=== PATIENT | male | born 1930 | race Caucasian/White ===

== ENCOUNTER 2018-02-09 11:46 | Inpatient (IN) | payer MEDICARE ==
--- NOTE | 2018-02-09 12:31 | ED ---
General Adult HPI - General Chief complaint: Weakness Stated complaint: Altered Mental Status Time Seen by Provider: 02/09/18 12:00 Source: patient, RN notes reviewed Mode of arrival: ambulatory Limitations: no limitations - History of Present Illness Initial comments: This is an 87-year-old male who presents emergency Department complaining of not feeling right. According to family he had 2 episodes during the week where he was just staring off for between 5 and 10 minutes and not responding he was not however unconscious. Patient now states he just doesn't feel right. He can 't really put into words but doesn't feel right. Patient denies any pain he denies headache he denies chest pain denies abdominal pain. Patient denies any recent fever chills or cough. Patient denies palpitations. Patient denies any nausea vomiting diarrhea. Patient denies any dysuria hematuria urinary frequency. Family states he seems to be more forgetful over the last few days. They note that he has had bypass surgery in the past as well as a stroke. Patient denies any injury or trauma. - Related Data Home Medications Medication Instructions Recorded Confirmed Albuterol Nebulized [Ventolin 2.5 mg INHALATION RT-BID 02/09/18 02/09/18 Nebulized] Aspirin/Dipyridamole [Aggrenox 1 tab PO BID 02/09/18 02/09/18 25MG -200MG] Citalopram Hydrobromide 20 mg PO DAILY 02/09/18 02/09/18 [Citalopram HBr] Docusate [Colace] 100 mg PO BID 02/09/18 02/09/18 Ferrous Sulfate [Feosol] 325 mg PO TID-W/MEALS 02/09/18 02/09/18 Fluticasone/Vilanterol [Breo 1 puff INHALATION RT-DAILY 02/09/18 02/09/18 Ellipta 200-25 Mcg INH] Focus Macula Pro 1 tab PO DAILY 02/09/18 02/09/18 Isosorbide Mononitrate ER [Imdur] 30 mg PO DAILY 02/09/18 02/09/18 Losartan Potassium [Cozaar] 100 mg PO DAILY 02/09/18 02/09/18 Multivitamins, Thera [Multivitamin 1 tab PO DAILY 02/09/18 02/09/18 (formulary)] Omeprazole 20 mg PO DAILY 02/09/18 02/09/18 Oxybutynin Chloride 5 mg PO DAILY 02/09/18 02/09/18 Simvastatin [Zocor] 40 mg PO HS 02/09/18 02/09/18 Tiotropium [place] [Spiriva] 1 cap INHALATION RT-DAILY 02/09/18 02/09/18 amLODIPine [Norvasc] 2.5 mg PO DAILY 02/09/18 02/09/18 Allergies Allergy/AdvReac Type Severity Reaction Status Date / Time No Known Allergies Allergy Verified 02/09/18 13:02 Review of Systems ROS Statement: Those systems with pertinent positive or pertinent negative responses have been documented in the HPI. ROS Other: All systems not noted in ROS Statement are negative. Past Medical History Past Medical History: COPD, Hyperlipidemia, Hypertension History of Any Multi-Drug Resistant Organisms: None Reported Past Surgical History: Coronary Bypass/CABG, Hernia Repair, Orthopedic Surgery Additional Past Surgical History / Comment(s): triple bypass, bilateral knee and ankle replacements Past Psychological History: No Psychological Hx Reported Smoking Status: Former smoker Past Alcohol Use History: Daily Past Drug Use History: None Reported General Exam - General Exam Comments Initial Comments: GENERAL: Patient is well-developed and well-nourished. Patient is nontoxic and well- hydrated and is in no acute distress. ENT: Neck is soft and supple. No significant lymphadenopathy is noted. Oropharynx is clear. Moist mucous membranes. Neck has full range of motion without eliciting any pain. EYES: The sclera were anicteric and conjunctiva were pink and moist. Extraocular movements were intact and pupils were equal round and reactive to light. Eyelids were unremarkable. PULMONARY: Unlabored respirations. Good breath sounds bilaterally. No audible rales rhonchi or wheezing was noted. CARDIOVASCULAR: There is a regular rate and rhythm without any murmurs gallops or rubs. ABDOMEN: Soft and nontender with normal bowel sounds. No palpable organomegaly was noted. There is no palpable pulsatile mass. SKIN: Skin is clear with no lesions or rashes and otherwise unremarkable. NEUROLOGIC: Patient is alert and oriented x3. Cranial nerves II through XII are grossly intact. Motor and sensory are also intact. Normal speech, volume and content. Symmetrical smile. MUSCULOSKELETAL: Normal extremities with adequate strength and full range of motion. No lower extremity swelling or edema. No calf tenderness. LYMPHATICS: No significant lymphadenopathy is noted PSYCHIATRIC: Normal psychiatric evaluation. Limitations: no limitations Course Vital Signs 02/09/18 11:54 Temperature 98.8 F Pulse Rate 61 Respiratory 18 Rate Blood Pressure 123/51 O2 Sat by Pulse 97 Oximetry Medical Decision Making - Medical Decision Making EKG shows sinus bradycardia 50 bpm RI interval is 238 QRS is 92 QT interval is 422 QTC is 414. Patient's EKG shows no ST segment elevation or depression or T wave abnormalities are noted - Lab Data Result diagrams: 02/09/18 12:30 02/09/18 12:30 Lab Results 02/09/18 02/09/18 02/09/18 Range/Units 12:30 12:30 12:30 WBC 6.3 (3.8-10.6) k/uL RBC 2.66 L (4.30-5.90) m/uL Hgb 8.1 L (13.0-17.5) gm/dL Hct 24.7 L (39.0-53.0) % MCV 92.7 (80.0-100.0) fL MCH 30.6 (25.0-35.0) pg MCHC 33.0 (31.0-37.0) g/dL RDW 13.9 (11.5-15.5) % Plt Count 254 (150-450) k/uL Neutrophils % 72 % Lymphocytes % 17 % Monocytes % 7 % Eosinophils % 3 % Basophils % 0 % Neutrophils # 4.5 (1.3-7.7) k/uL Lymphocytes # 1.0 (1.0-4.8) k/uL Monocytes # 0.4 (0-1.0) k/uL Eosinophils # 0.2 (0-0.7) k/uL Basophils # 0.0 (0-0.2) k/uL PT (9.0-12.0) sec INR (<1.2) APTT (22.0-30.0) sec Sodium 138 (137-145) mmol/L Potassium 5.6 H (3.5-5.1) mmol/L Chloride 107 (98-107) mmol/L Carbon Dioxide 26 (22-30) mmol/L Anion Gap 5 mmol/L BUN 33 H (9-20) mg/dL Creatinine 1.45 H (0.66-1.25) mg/dL Est GFR (CKD-EPI)AfAm 49 (>60 ml/min/1.73 sqM) Est GFR (CKD-EPI)NonAf 42 (>60 ml/min/1.73 sqM) Glucose 97 (74-99) mg/dL Calcium 9.6 (8.4-10.2) mg/dL Total Bilirubin 0.2 (0.2-1.3) mg/dL AST 23 (17-59) U/L ALT 25 (21-72) U/L Alkaline Phosphatase 80 (38-126) U/L Total Creatine Kinase 51 L (55-170) U/L CK-MB (CK-2) 1.7 (0.0-2.4) ng/mL CK-MB (CK-2) Rel Index 3.3 Troponin I 0.032 (0.000-0.034) ng/mL Total Protein 6.1 L (6.3-8.2) g/dL Albumin 3.6 (3.5-5.0) g/dL 02/09/18 Range/Units 12:30 WBC (3.8-10.6) k/uL RBC (4.30-5.90) m/uL Hgb (13.0-17.5) gm/dL Hct (39.0-53.0) % MCV (80.0-100.0) fL MCH (25.0-35.0) pg MCHC (31.0-37.0) g/dL RDW (11.5-15.5) % Plt Count (150-450) k/uL Neutrophils % % Lymphocytes % % Monocytes % % Eosinophils % % Basophils % % Neutrophils # (1.3-7.7) k/uL Lymphocytes # (1.0-4.8) k/uL Monocytes # (0-1.0) k/uL Eosinophils # (0-0.7) k/uL Basophils # (0-0.2) k/uL PT 10.4 (9.0-12.0) sec INR 1.1 (<1.2) APTT 23.8 (22.0-30.0) sec Sodium (137-145) mmol/L Potassium (3.5-5.1) mmol/L Chloride (98-107) mmol/L Carbon Dioxide (22-30) mmol/L Anion Gap mmol/L BUN (9-20) mg/dL Creatinine (0.66-1.25) mg/dL Est GFR (CKD-EPI)AfAm (>60 ml/min/1.73 sqM) Est GFR (CKD-EPI)NonAf (>60 ml/min/1.73 sqM) Glucose (74-99) mg/dL Calcium (8.4-10.2) mg/dL Total Bilirubin (0.2-1.3) mg/dL AST (17-59) U/L ALT (21-72) U/L Alkaline Phosphatase (38-126) U/L Total Creatine Kinase (55-170) U/L CK-MB (CK-2) (0.0-2.4) ng/mL CK-MB (CK-2) Rel Index Troponin I (0.000-0.034) ng/mL Total Protein (6.3-8.2) g/dL Albumin (3.5-5.0) g/dL Disposition Clinical Impression: Anemia, Recurrent episodes of unresponsiveness Disposition: ADMITTED IP TO THIS [facility] Referrals: Nonstaff,Physician [Primary Care Provider] - 1-2 days Time of Disposition: 13:51
[2018-02-09 12:53] LABS: Basophils % (A) 0 %; Eosinophils # (A) 0.2 k/uL (0-0.7); Eosinophils % (A) 3 %; HCT 24.7 % (39.0-53.0); HGB 8.1 gm/dL (13.0-17.5); Lymphocytes % (A) 17 %; MCH 30.6 pg (25.0-35.0); MCV 92.7 fL (80.0-100.0); Mean Platelet Volume 8.2; Monocytes # (A) 0.4 k/uL (0-1.0); Monocytes % (A) 7 %; Neutrophils # (A) 4.5 k/uL (1.3-7.7); Neutrophils % (A) 72 %; Platelet Count 254 k/uL (150-450); RBC 2.66 m/uL (4.30-5.90); RDW 13.9 % (11.5-15.5); WBC 6.3 k/uL (3.8-10.6)
[2018-02-09 13:04] LABS: INR 1.1 (<1.2); Partial Thromboplastin Time 23.8 sec (22.0-30.0); Prothrombin Time 10.4 sec (9.0-12.0)
[2018-02-09 13:06] LABS: Albumin 3.6 g/dL (3.5-5.0); Calcium 9.6 mg/dL (8.4-10.2); Potassium 5.6 mmol/L (3.5-5.1); Total Bilirubin 0.2 mg/dL (0.2-1.3); Total Protein 6.1 g/dL (6.3-8.2)
--- NOTE | 2018-02-09 13:14 | XR ---
EXAMINATION TYPE: XR chest 2V DATE OF EXAM: 02/09/2018 COMPARISON: 03/21/2011 HISTORY: Shortness of breath. Altered mental status. TECHNIQUE: Frontal and lateral views of the chest are obtained. FINDINGS: There is a trace left pleural effusion and left basilar retrocardiac airspace disease part ially obscuring the left hemidiaphragm and costophrenic angle. There is pulmonary hyperinflation sugg estive of underlying COPD. Post CABG changes of the chest with cardiomegaly. There is diffuse osseous demineralization, multilevel mild degenerative changes of the thoracic spine and right acromioclavic ular arthropathy. IMPRESSION: Left basilar opacity that may represent atelectasis or pneumonia in the proper clinical setting with associated trace left pleural effusion.
--- NOTE | 2018-02-09 13:21 | CT ---
EXAMINATION TYPE: CT brain wo con DATE OF EXAM: 02/09/2018 COMPARISON: None. HISTORY: 87-year-old male with confusion, altered mental status TECHNIQUE: Examination was done in axial plane without intravenous contrast. Coronal and sagittal r econstructions performed. CT DLP: 1141 mGycm Automated exposure control for dose reduction was used. FINDINGS: Areas of cortical and subcortical encephalomalacia such as in the posterior left frontal lobe, anteri or right frontal lobe, and left cerebellar hemisphere. Moderate generalized supratentorial volume loss with secondary prominence to the ventricular system. Patchy and confluent white matter hypodensities in both cerebral hemispheres. Prominent atherosclerotic calcifications within the vertebral basilar system and the carotid siphons. There is no evidence of acute intracranial hemorrhage, acute ischemic changes, mass, mass-effect, or extra-axial fluid collection. There is no effacement of cerebral sulci or basal subarachnoid cister ns. There is no hydrocephalus. There is no midline shift. Trace mucosal thickening within the ethmoid air cells. IMPRESSION: 1. Old cortical infarcts in the bifrontal lobes and left cerebral hemisphere. Moderate generalized at rophy. 2. No acute intracranial abnormality seen.
[2018-02-09 13:26] LABS: Creatine Kinase MB 1.7 ng/mL (0.0-2.4); Troponin I 0.032 ng/mL (0.000-0.034)
[2018-02-09] MEDS ORDERED: SODIUM CHLORIDE 0.9% 1,000 ML IV ONE (13:52)
[2018-02-09 13:53] LABS: Appearance,Urine Clear (Clear); Bilirubin,Urine Negative (Negative); Blood,Urine Negative (Negative); Color,Urine Yellow; Glucose,Urine (UA) Negative (Negative); Hyaline Casts,Urine 9 /lpf (0-2); Ketones,Urine Negative (Negative); Leukocyte Esterase,Urine Small (Negative); Mucus,Urine Rare /hpf; Nitrite,Urine Negative (Negative); Protein,Urine Negative (Negative); RBC,Urine 1 /hpf (0-5); Specific Gravity,Urine 1.012 (1.001-1.035); Urobilinogen,Urine <2.0 mg/dL (<2.0); WBC,Urine 2 /hpf (0-5)
[2018-02-09 14:11] LABS: Amphetamine Screen,Urine Not Detected (NotDetected); Barbiturate Screen,Urine Not Detected (NotDetected); Benzodiazepines Screen,Urine Not Detected (NotDetected); Cocaine Screen,Urine Not Detected (NotDetected); Methadone Screen, Urine Not Detected (NotDetected); Opiate Screen,Urine Not Detected (NotDetected); Oxycodone Screen, Urine Not Detected (NotDetected); Phencyclidine Screen,Urine Not Detected (NotDetected); Tricyclic Antidepressant,Urine Not Detected (NotDetected); Urn Cannabinoid Scrn Not Detected (NotDetected)
[2018-02-09] MEDS ORDERED: ACETAMINOPHEN TAB 325 MG TAB PO PRN (16:44)
--- NOTE | 2018-02-09 20:29 | P.CNNES ---
History of Present Illness Consult date: 02/09/18 Reason for Consult: Patient admitted with episodes of unresponsiveness. History of Present Illness: This patient is a 87-year-old right-handed white male who was brought into the emergency room at [facility] today for evaluation of episode of unresponsiveness and confusion. Patient was evaluated in the ER by Dr. Bean. He complained of 2 episodes last week in which she was staring off into space and just not too responsive. He denied any loss of consciousness. He just was not feeling well and decided to come into the hospital for further evaluation. Patient denies any history of seizures or closed head injury in the past. He does have history of having undergone coronary artery bypass grafting in the past. He is being followed by a new physician at [facility] and apparently has not had any recent follow-up with him. He was found in the ER to have evidence of a chronic anemia which is being further evaluated. His hemoglobin on admission was 8.1. He states he has been having symptoms of excessive fatigue and tiredness. Once again he denies any history of head trauma or head injury in the past. He is never experiences seizure. We have recommended a routine EEG to rule out complex partial epilepsy as a cause of his staring spells. The patient was sent for a computed tomography scan of the brain in the emergency room today by Dr. Bean. CAT scan revealed old cortical infarcts in the frontal lobes bilaterally. There was moderate degree of generalized atrophy. No evidence of acute hemorrhage. Patient was subsequent admitted to the hospital. He is able to answer most questions appropriately but does feel fatigued and tired most of the time. We will await further evaluation and treatment of his underlying chronic anemia. His overall prognosis at this time remains guarded. Neurology is now been consulted for further evaluation and recommendations. Review of Systems Constitutional: Denies chills, Denies fever Eyes: denies blurred vision, denies pain Ears, nose, mouth and throat: Denies headache, Denies sore throat Cardiovascular: Denies chest pain, Denies shortness of breath Respiratory: Denies cough Gastrointestinal: Denies abdominal pain, Denies diarrhea, Denies nausea, Denies vomiting Musculoskeletal: Denies myalgias Integumentary: Denies pruritus, Denies rash Neurological: Reports change in mentation, Reports confusion, Reports memory loss, Reports seizures, Reports tingling, Denies numbness, Denies weakness Psychiatric: Reports difficulty concentrating, Reports disorientation, Reports memory loss, Denies anxiety, Denies depression Endocrine: Denies fatigue, Denies weight change Past Medical History Past Medical History: Asthma, CVA/TIA, GI Bleed, Hyperlipidemia, Hypertension Additional Past Medical History / Comment(s): CVA with speech affected, sinus problems, lower GI bleed. History of Any Multi-Drug Resistant Organisms: None Reported Past Surgical History: Coronary Bypass/CABG, Hernia Repair, Orthopedic Surgery Additional Past Surgical History / Comment(s): 2008 triple coronary bypass, bilateral total knees, L ankle ORIF, colonoscopy, capsule endoscopy, R inguinal hernia repair, bilateral cataract removal with lens implants. Past Anesthesia/Blood Transfusion Reactions: No Reported Reaction Additional Past Anesthesia/Blood Transfusion Reaction / Comment(s): Pt has received blood without reaction. Smoking Status: Former smoker - Past Family History Father Family Medical History: No Reported History Additional Family Medical History / Comment(s): Father was healthy and lived to be 90yrs old. Mother Additional Family Medical History / Comment(s): Mother had heart disease and lived into her 80s. Medications and Allergies Home Medications Medication Instructions Recorded Confirmed Type Albuterol Nebulized [Ventolin 2.5 mg INHALATION RT-BID 02/09/18 02/09/18 History Nebulized] Aspirin/Dipyridamole [Aggrenox 1 tab PO BID 02/09/18 02/09/18 History 25MG -200MG] Citalopram Hydrobromide 20 mg PO DAILY 02/09/18 02/09/18 History [Citalopram HBr] Docusate [Colace] 100 mg PO BID 02/09/18 02/09/18 History Ferrous Sulfate [Feosol] 325 mg PO TID-W/MEALS 02/09/18 02/09/18 History Fluticasone/Vilanterol [Breo 1 puff INHALATION RT-DAILY 02/09/18 02/09/18 History Ellipta 200-25 Mcg INH] Focus Macula Pro 1 tab PO DAILY 02/09/18 02/09/18 History Isosorbide Mononitrate ER [Imdur] 30 mg PO DAILY 02/09/18 02/09/18 History Losartan Potassium [Cozaar] 100 mg PO DAILY 02/09/18 02/09/18 History Multivitamins, Thera [Multivitamin 1 tab PO DAILY 02/09/18 02/09/18 History (formulary)] Omeprazole 20 mg PO DAILY 02/09/18 02/09/18 History Oxybutynin Chloride 5 mg PO DAILY 02/09/18 02/09/18 History Simvastatin [Zocor] 40 mg PO HS 02/09/18 02/09/18 History Tiotropium [place] [Spiriva] 1 cap INHALATION RT-DAILY 02/09/18 02/09/18 History amLODIPine [Norvasc] 2.5 mg PO DAILY 02/09/18 02/09/18 History Allergies Allergy/AdvReac Type Severity Reaction Status Date / Time No Known Allergies Allergy Verified 02/09/18 13:02 Physical Examination - Vital Signs Vital Signs: Vital Signs Temp Pulse Pulse Resp BP Pulse Ox 02/09/18 15:36 97.2 F L 58 L 20 95 02/09/18 14:42 97.9 F 59 L 18 158/67 96 02/09/18 11:54 98.8 F 61 18 123/51 97 Intake and Output 02/09/18 02/09/18 02/09/18 06:59 14:59 22:59 Other: Weight 99.79 kg - Constitutional General appearance: average body habitus, cooperative - EENT EENT: PERRL, mucous membranes moist - Respiratory Respiratory: lungs clear, normal breath sounds - Cardiovascular Cardiovascular: regular rate, normal S1, normal S2 Extremities: no peripheral edema bilaterally - Gastrointestinal Gastrointestinal: normoactive bowel sounds - Integumentary Integumentary: normal - Neurologic Cranial nerve examination: PERRL, EOMI, VFF, V1/V2/V3 grossly intact, face symmetric, tongue midline, intact gag reflex, intact corneal reflex, normal palatal elevation Speech examination: intact Sensorimotor examination: intact Motor examination - right side: 4/5: biceps, triceps, wrist flexion, wrist extension, calibration tester, hip flexors, knee extensors, dorsiflexion, toe extension (EHL) , plantarflexion Motor examination - left side: 4/5: biceps, triceps, wrist flexion, wrist extension, calibration tester, hip flexors, knee extensors, dorsiflexion, toe extension (EHL) , plantarflexion Detailed sensory examination: intact Reflex and gait examination: intact Reflexes: 1+: ankle, bicep, knee, tricep - Musculoskeletal Musculoskeletal: no pain - Psychiatric Psychiatric: mood/affect appropriate, cooperative Results - Laboratory Findings CBC and BMP: 02/09/18 12:30 02/09/18 12:30 Abnormal Lab Findings: Abnormal Labs 02/09/18 02/09/18 02/09/18 12:30 12:30 12:30 RBC 2.66 L Hgb 8.1 L Hct 24.7 L Potassium 5.6 H BUN 33 H Creatinine 1.45 H Total Creatine Kinase 51 L Total Protein 6.1 L Ur Leukocyte Esterase Hyaline Casts Urine Mucus 02/09/18 13:40 RBC Hgb Hct Potassium BUN Creatinine Total Creatine Kinase Total Protein Ur Leukocyte Esterase Small H Hyaline Casts 9 H Urine Mucus Rare H Assessment and Plan (1) Recurrent episodes of unresponsiveness Current Visit: Yes Status: Acute Code(s): R41.82 - ALTERED MENTAL STATUS, UNSPECIFIED SNOMED Code(s): 830345075 (2) Complex partial epilepsy Current Visit: Yes Status: Acute Code(s): G40.209 - LOCAL-REL SYMPTC EPI W CMPLX PRT SEIZ,NOT NTRCT,W/O STAT EPI SNOMED Code(s): 494311130 (3) Coronary artery disease involving coronary bypass graft Current Visit: Yes Status: Acute Code(s): I25.810 - ATHEROSCLEROSIS OF CABG W/O ANGINA PECTORIS SNOMED Code(s): 659442159 (4) Anemia Current Visit: Yes Status: Acute Code(s): D64.9 - ANEMIA, UNSPECIFIED SNOMED Code(s): 228607052 Plan: This patient is a 87-year-old male being evaluated for recurrent episodes of unresponsiveness and staring spells. He underwent a computed tomography scan of the brain today on admission through the emergency room the results of which were reviewed above. At scan reveals evidence of old bifrontal stroke. No evidence of acute hemorrhage or new areas of stroke. We have recommended the patient undergo routine EEG to rule out possibility of partial seizures. He is being evaluated for underlying chronic anemia and his hemoglobin on admission was 8.1. We will await further recommendations from internal medicine. His overall prognosis at this time remains guarded. We will continue close neurological follow-up with the patient during this admission. Time with Patient: Greater than 30
[2018-02-09] MEDS ORDERED: MELATONIN 5 MG TABLET PO PRN (21:00)
[2018-02-09] MEDS: ALBUTEROL NEBULIZED 2.5 MG/3 ML INHALATION SCH (21:06)
[2018-02-09] MEDS: ATORVASTATIN 20 MG TAB PO SCH (21:29)
[2018-02-09] MEDS: DOCUSATE 100 MG CAP PO SCH (21:30)
[2018-02-09 22:35] LABS: Basophils % (A) 0 %; Eosinophils # (A) 0.3 k/uL (0-0.7); Eosinophils % (A) 4 %; HCT 26.2 % (39.0-53.0); HGB 8.8 gm/dL (13.0-17.5); Lymphocytes # (A) 1.7 k/uL (1.0-4.8); Lymphocytes % (A) 25 %; MCH 31.4 pg (25.0-35.0); MCHC 33.6 g/dL (31.0-37.0); MCV 93.4 fL (80.0-100.0); Mean Platelet Volume 7.4; Monocytes # (A) 0.5 k/uL (0-1.0); Monocytes % (A) 7 %; Neutrophils # (A) 4.2 k/uL (1.3-7.7); Neutrophils % (A) 61 %; Platelet Count 234 k/uL (150-450); RBC 2.81 m/uL (4.30-5.90); RDW 14.1 % (11.5-15.5); WBC 6.9 k/uL (3.8-10.6)
[2018-02-09] MEDS ORDERED: SODIUM POLYSTYRENE SULFONATE 15 GM/60 ML BOTTLE PO ONE (22:41)
[2018-02-09] MEDS ORDERED: ALPRAZolam 0.25 MG TAB PO PRN (23:35)
[2018-02-10] MEDS: IPRATROPIUM 0.5 MG/2.5 ML NEBU INHALATION SCH ×4 (07:40→19:38)
[2018-02-10] MEDS: ALBUTEROL NEBULIZED 2.5 MG/3 ML INHALATION SCH ×2 (07:40→19:38)
[2018-02-10] MEDS: SYMBICORT 160-4.5 MCG INHALER INHALATION SCH ×2 (07:40→19:38)
[2018-02-10 07:43] LABS: Basophils % (A) 1 %; Eosinophils # (A) 0.2 k/uL (0-0.7); Eosinophils % (A) 4 %; HCT 25.6 % (39.0-53.0); HGB 8.6 gm/dL (13.0-17.5); Lymphocytes # (A) 0.9 k/uL (1.0-4.8); Lymphocytes % (A) 17 %; MCH 31.3 pg (25.0-35.0); MCHC 33.4 g/dL (31.0-37.0); MCV 93.9 fL (80.0-100.0); Mean Platelet Volume 7.9; Monocytes # (A) 0.3 k/uL (0-1.0); Monocytes % (A) 6 %; Neutrophils # (A) 3.9 k/uL (1.3-7.7); Neutrophils % (A) 71 %; Platelet Count 255 k/uL (150-450); RBC 2.73 m/uL (4.30-5.90); WBC 5.4 k/uL (3.8-10.6)
[2018-02-10] MEDS: DOCUSATE 100 MG CAP PO SCH ×2 (07:53→19:55)
[2018-02-10] MEDS: HEPARIN SODIUM,PORCINE 5,000 UNIT/ML 1 ML VIAL SQ SCH ×2 (07:53→19:56)
[2018-02-10] MEDS: FERROUS SULFATE 325 MG TAB PO SCH ×3 (07:53→17:04)
[2018-02-10] MEDS: amLODIPine 2.5 MG TAB PO SCH (07:53)
[2018-02-10] MEDS: PANTOPRAZOLE 40 MG TABLET PO SCH (07:53)
[2018-02-10] MEDS: CITALOPRAM HYDROBROMIDE 20 MG TAB PO SCH (07:53)
[2018-02-10] MEDS: ISOSORBIDE MONONITRATE ER 30 MG TAB.ER.24H PO SCH (07:54)
[2018-02-10] MEDS: OXYBUTYNIN CHLORIDE 5 MG TAB PO SCH (07:54)
[2018-02-10] MEDS: LOSARTAN 50 MG TAB PO SCH (07:54)
[2018-02-10 08:05] LABS: Calcium 9.4 mg/dL (8.4-10.2); Potassium 4.9 mmol/L (3.5-5.1)
--- NOTE | 2018-02-10 08:31 | HP ---
HISTORY AND PHYSICAL DATE OF SERVICE: 02/09/2018 CHIEF COMPLAINTS: Change in mental status. HISTORY OF PRESENT ILLNESS: This 87-year-old gentleman with a past medical history of multiple medical problems including asthma, CVA, history hypertension, hyperlipidemia, CAD, CABG was previously followed by Dr. Stanley Giang. The patient was noted by the family having some change in mental status at least 2 episodes over the week where the patient is staring between 5 to 10 minutes and the patient was taken to [facility] and admitted for further evaluation and treatment. Patient is mildly confused, unable to give a sketchy history. There is no history of fever, rigors, no history of headache, loss of consciousness, seizures. PAST MEDICAL HISTORY: History of asthma, CVA, TIA, GI bleed, hypertension, hyperlipidemia, CVA, speech abnormalities. MEDICATIONS: Prior to admission include home medications are: 1. Oxybutynin 5 mg p.o. daily. 2. Norvasc 2.5 mg daily. 3. Spiriva 1 puff daily. 4. Zocor 40 mg. 5. Omeprazole 20 mg daily. 6. Multivitamins 1 p.o. daily. 7. Cozaar 100 mg b.i.d. 8. Imdur 30 mg daily. 9. Focus 1 tablet p.o. 10.Breo Ellipta 1 puff daily. 11.Iron sulfate 325 mg b.i.d. 12.Colace 100 mg b.i.d. 13.Celexa 20 mg daily. 14.Aggrenox 25/200 p.o. b.i.d. ALLERGIES: None. FAMILY HISTORY: No history of heart disease or strokes in the family. SOCIAL HISTORY: Previous history of smoking. Occasional alcohol intake. REVIEW OF SYSTEMS: ENT: No diminished hearing or vision. CARDIOVASCULAR: No angina. RESPIRATION: No cough. GI: As mentioned earlier. : No dysuria. NERVOUS SYSTEM: As mentioned earlier. ALLERGY/IMMUNOLOGY: No history of asthma. MUSCULOSKELETAL: As mentioned earlier. HEMATOLOGY/ONCOLOGY: No history of anemia. ENDOCRINE: No history of diabetes or hypothyroidism. CONSTITUTIONAL: As mentioned. DERMATOLOGY: Negative. RHEUMATOLOGY: Negative. PSYCHIATRY: As mentioned earlier. PHYSICAL EXAMINATION: Alert and oriented x2. Pulse is 58. Blood pressure 150/60, respiration 20, temperature 97.4, pulse ox 94% on 3 L. HEENT: Conjunctivae normal. Oral mucosa moist. NECK: No jugular venous distention. No carotid bruit. No lymph node enlargement. CARDIOVASCULAR: S1, S2. RESPIRATORY: Breath sounds diminished in the bases. A few scattered rhonchi. No crackles. ABDOMEN: Soft, nontender. No mass palpable. LEGS: No edema, no swelling. NERVOUS SYSTEM: Higher functions as mentioned earlier. Moves all four limbs. Mild diffuse weakness. LYMPHATICS: No lymphadenopathy in the neck, axillae, groin. SKIN: No ulcer, rash, bleeding. LABS: Hemoglobin 8.8, and creatinine is 1.4. ASSESSMENT: 1. Change in mental status, rule out seizure disorder. 2. Acute transient ischemic attack, possibly bifrontal strokes. 3. Increased creatinine with possibly rule out acute renal failure. 4. Anemia of undetermined etiology. 5. History of asthma. 6. History of cerebrovascular accident, transient ischemic attack. 7. History of gastrointestinal bleed. 8. Hyperlipidemia. 9. History of coronary artery disease, CABG. 10.History of degenerative joint disease. 11.History of anxiety. RECOMMENDATIONS AND DISCUSSION: This 87-year-old gentleman who presented with multiple complex medical issues, we will monitor the patient closely. Continue the current management and symptomatic treatment. At this time, I recommend continue with current medications. We will avoid antiplatelet agents because of history of gastrointestinal bleed and anemia. We will continue to monitor hemoglobin. Repeat labs. Cautious IV fluids. Otherwise, the CT scan of the brain which was done showed old cortical infarcts in bifrontal lobes and as well as left cerebral hemisphere. No acute intracranial abnormality was noted. I would also recommend a 2D echo with Doppler and as well as carotid Doppler ultrasound. Prognosis guarded. Further recommendations to follow. MMODL / IJN: [id number] / [facility]
[2018-02-10] MEDS ORDERED: [UNRECOGNIZED DRUG - OTHER] PO SCH (09:00)
[2018-02-10] MEDS: MULTIVITAMINS, THERA 1 EACH TAB PO SCH (12:11)
--- NOTE | 2018-02-10 13:53 | P.PN ---
Subjective Progress Note Date: 02/10/18 Patient is being evaluated for episodes of unrespnsiveness. The patient was admitted to the hospital after having staring spells at home. He is resting comfortably at bedside today and has had no further episodes. We did have a discussion with the patient's and family member and apparently he has been having frequent staring spells off and on for the past several months. He will be going for routine EEG today to rule out possibility of partial seizures such as petit mal.. He has no previous history of underlying seizure disorder. He does have history of TIA symptoms in the past. Neurologically he remains intact today and we will continue close neurological follow-up for him during this admission. Objective - Vital Signs Vital signs: Vital Signs Temp 97.7 F 02/10/18 07:00 Pulse 64 02/10/18 08:01 Resp 30 H 02/10/18 07:00 BP 155/67 02/10/18 07:00 Pulse Ox 94 L 02/10/18 07:00 Intake & Output 02/09/18 02/10/18 02/10/18 18:59 06:59 18:59 Intake Total 300 Balance 300 Weight 99.79 kg Intake: Oral 300 Other: Voiding Method Urinal # Voids 3 - Exam Physical Examination: PHYSICAL EXAMINATION: Patient is resting comfortably in bed. VITAL SIGNS: Blood pressure is [155/67]. Heart rate is [65]. Respiration is [30] . Temperature is [97.7]. HEENT: Head is atraumatic, neck is supple, there were no carotid bruits. CHEST: Lungs are clear to auscultation and percussion. CARDIAC: S1, S2 normal rate and rhythm. There is no murmur. ABDOMEN: Soft and nontender. Bowel sounds are present. EXTREMITIES: There is no pedal edema. Peripheral pulses are present. Neurological examination: Patient's neurological examination is unchanged from yesterday. - Labs CBC & Chem 7: 02/10/18 07:09 02/10/18 07:09 Labs: Abnormal Lab Results - Last 24 Hours (Table) 02/09/18 02/09/18 02/09/18 Range/Units 12:30 12:30 12:30 RBC 2.66 L (4.30-5.90) m/uL Hgb 8.1 L (13.0-17.5) gm/dL Hct 24.7 L (39.0-53.0) % Lymphocytes # (1.0-4.8) k/uL Potassium 5.6 H (3.5-5.1) mmol/L BUN 33 H (9-20) mg/dL Creatinine 1.45 H (0.66-1.25) mg/dL Total Creatine Kinase 51 L (55-170) U/L Total Protein 6.1 L (6.3-8.2) g/dL Ur Leukocyte Esterase (Negative) Hyaline Casts (0-2) /lpf Urine Mucus (None) /hpf 02/09/18 02/09/18 02/10/18 Range/Units 13:40 22:23 07:09 RBC 2.81 L 2.73 L (4.30-5.90) m/uL Hgb 8.8 L 8.6 L (13.0-17.5) gm/dL Hct 26.2 L 25.6 L (39.0-53.0) % Lymphocytes # 0.9 L (1.0-4.8) k/uL Potassium (3.5-5.1) mmol/L BUN (9-20) mg/dL Creatinine (0.66-1.25) mg/dL Total Creatine Kinase (55-170) U/L Total Protein (6.3-8.2) g/dL Ur Leukocyte Esterase Small H (Negative) Hyaline Casts 9 H (0-2) /lpf Urine Mucus Rare H (None) /hpf 02/10/18 Range/Units 07:09 RBC (4.30-5.90) m/uL Hgb (13.0-17.5) gm/dL Hct (39.0-53.0) % Lymphocytes # (1.0-4.8) k/uL Potassium (3.5-5.1) mmol/L BUN 26 H (9-20) mg/dL Creatinine 1.35 H (0.66-1.25) mg/dL Total Creatine Kinase (55-170) U/L Total Protein (6.3-8.2) g/dL Ur Leukocyte Esterase (Negative) Hyaline Casts (0-2) /lpf Urine Mucus (None) /hpf Assessment and Plan (1) Recurrent episodes of unresponsiveness Current Visit: Yes Status: Acute Code(s): R41.82 - ALTERED MENTAL STATUS, UNSPECIFIED SNOMED Code(s): 236237458 (2) Complex partial epilepsy Current Visit: Yes Status: Acute Code(s): G40.209 - LOCAL-REL SYMPTC EPI W CMPLX PRT SEIZ,NOT NTRCT,W/O STAT EPI SNOMED Code(s): 167050958 (3) Coronary artery disease involving coronary bypass graft Current Visit: Yes Status: Acute Code(s): I25.810 - ATHEROSCLEROSIS OF CABG W/O ANGINA PECTORIS SNOMED Code(s): 359287249 (4) Anemia Current Visit: Yes Status: Acute Code(s): D64.9 - ANEMIA, UNSPECIFIED SNOMED Code(s): 482476995 Plan: This patient is a 87-year-old male being evaluated for episodes of unresponsiveness and mild confusion. Apparently his symptoms have been ongoing over the last several months at home as per his who was at bedside today. Patient is to be evaluated with a routine EEG today to rule out possibility of complex partial seizures. His clinical history suggests possibility of petit mall seizures. He has no previous history of head trauma or head injury with seizure disorder. We will continue close monitoring of his condition. We will review his EEG and give further recommendations for this patient. His overall prognosis at this time remains guarded.
--- NOTE | 2018-02-10 14:48 | EEG ---
ELECTROENCEPHALOGRAM REPORT DATE OF EE02/10/2018. ELECTROENCEPHALOGRAPHIC EXAMINATION REPORT: INDICATION FOR EXAMINATION: This patient is an 87-year-old male being evaluated for episodes of staring spells and possible complex partial seizures. A[age]: [age]. EEG FINDINGS: A routine 21 channel awake digital EEG recording was accomplished utilizing the 10-20 international system with bipolar and referential montages. The background activity in the most alert resting state consists of a low to medium amplitude, fairly well developed well sustained 6 Hz activity over the posterior head regions. This posterior rhythm attenuates to eye opening. There is a small amount of low amplitude 18-20 Hz beta activity seen maximally over the anterior head regions. Muscle and movement artifact was observed on a few occasions during the tracing. Hyperventilation was not performed. Photic stimulation at flash frequencies of 2-30 Hz produced a minimal occipital driving response. No epileptiform discharges were seen. IMPRESSION: This EEG is moderately abnormal in a diffuse fashion due to slowing of the EEG background. The EEG fails to reveal any focal, lateralized, or epileptiform abnormalities. If clinically indicated, a followup EEG or a sleep-deprived EEG may be considered. Clinical correlation is recommended. MMODL / IJN: [id number] /
--- NOTE | 2018-02-10 15:17 | ECHOF ---
Referral Reason:Stroke MEASUREMENTS -------- HEIGHT: 162.6 cm WEIGHT: 99.8 kg BP: RVIDd: 3.3 cm (< 3.3) IVSd: 1.5 cm (0.6 - 1.1) LVIDd: 5.3 cm (3.9 - 5.3) LVPWd: 1.7 cm (0.6 - 1.1) IVSs: 1.9 cm LVIDs: 4.8 cm LVPWs: 1.4 cm LA Diam: 4.1 cm (2.7 - 3.8) LAESV Index (A-L): 49.02 ml/m Ao Diam: 4.3 cm (2.0 - 3.7) AV Cusp: 0.7 cm (1.5 - 2.6) LA Diam: 5.2 cm (2.7 - 3.8) MV EXCURSION: 18.221 mm (> 18.000) MV EF SLOPE: 50 mm/s (70 - 150) EPSS: 1.1 cm MV E Phil: 0.54 m/s MV DecT: 293 ms MV A Phil: 0.85 m/s MV E/A Ratio: 0.64 AV maxP.70 mmHg AV meanP.69 mmHg RAP: 5.00 mmHg RVSP: 11.16 mmHg FINDINGS -------- Sinus rhythm. This was a techncally difficult study with suboptimal views, , Lumason utilized for enhancement of im ages. The left ventricular size is normal. There is moderate concentric left ventricular hypertrophy. O verall left ventricular systolic function is low-normal with, an EF between 50 - 55 %. The right ventricle is normal in size. The left atrium is markedly dilated. LA is severely dilated >40 ml/m2 The right atrial size is normal. 5.0mg OF Lumason UTLIZED: 2 OR MORE WALL SEGMENTS NOT VISUALIZED. There is [id number] aortic stenosis present. Peak/mean gradient across the Aortic Valve is 60.70mmHg / 34.69mmHg. Mild mitral annular calcification present. Mild mitral regurgitation is present. Mild tricuspid regurgitation present. There is no evidence of pulmonary hypertension. The right v entricular systolic pressure, as measured by Doppler, is 11.16mmHg. Trace/mild (physiologic) pulmonic regurgitation. The aortic root size is normal. There is no pericardial effusion. CONCLUSIONS -------- 1. The left ventricular size is normal. 2. There is moderate concentric left ventricular hypertrophy. 3. Overall left ventricular systolic function is low-normal with, an EF between 50 - 55 %. 4. The right ventricle is normal in size. 5. The left atrium is markedly dilated. 6. LA is severely dilated >40 ml/m2 7. The right atrial size is normal. 8. 5.0mg OF Lumason UTLIZED: 2 OR MORE WALL SEGMENTS NOT VISUALIZED. 9. There is ejxkynjg-[id number] aortic stenosis present. 10. Peak/mean gradient across the Aortic Valve is 60.70mmHg / 34.69mmHg. 11. Mild mitral annular calcification present. 12. Mild mitral regurgitation is present. 13. Mild tricuspid regurgitation present. 14. There is no evidence of pulmonary hypertension. 15. The right ventricular systolic pressure, as measured by Doppler, is 11.16mmHg. 16. Trace/mild (physiologic) pulmonic regurgitation. 17. The aortic root size is normal. 18. There is no pericardial effusion. EN[employer]EVEL MARKETING REPRESENTATIVE: Ranjana Zheng RDCS
[2018-02-10] MEDS: ATORVASTATIN 20 MG TAB PO SCH (19:55)
[2018-02-11] MEDS: SYMBICORT 160-4.5 MCG INHALER INHALATION SCH ×2 (07:48→19:33)
[2018-02-11] MEDS: ALBUTEROL NEBULIZED 2.5 MG/3 ML INHALATION SCH ×2 (07:50→19:33)
[2018-02-11] MEDS: IPRATROPIUM 0.5 MG/2.5 ML NEBU INHALATION SCH ×4 (07:50→19:34)
[2018-02-11 07:51] LABS: Basophils % (A) 0 %; Eosinophils # (A) 0.2 k/uL (0-0.7); Eosinophils % (A) 5 %; HCT 24.2 % (39.0-53.0); Lymphocytes # (A) 0.9 k/uL (1.0-4.8); Lymphocytes % (A) 22 %; MCH 30.8 pg (25.0-35.0); MCHC 32.9 g/dL (31.0-37.0); MCV 93.4 fL (80.0-100.0); Mean Platelet Volume 7.8; Monocytes # (A) 0.3 k/uL (0-1.0); Monocytes % (A) 8 %; Neutrophils # (A) 2.7 k/uL (1.3-7.7); Neutrophils % (A) 63 %; Platelet Count 254 k/uL (150-450); RBC 2.59 m/uL (4.30-5.90); RDW 14.1 % (11.5-15.5); WBC 4.4 k/uL (3.8-10.6)
[2018-02-11 08:00] LABS: Calcium 9.4 mg/dL (8.4-10.2); Potassium 4.4 mmol/L (3.5-5.1)
[2018-02-11] MEDS: FERROUS SULFATE 325 MG TAB PO SCH ×3 (08:09→19:03)
[2018-02-11] MEDS: HEPARIN SODIUM,PORCINE 5,000 UNIT/ML 1 ML VIAL SQ SCH ×2 (08:09→20:01)
[2018-02-11] MEDS: PANTOPRAZOLE 40 MG TABLET PO SCH (08:09)
[2018-02-11] MEDS: DOCUSATE 100 MG CAP PO SCH ×2 (08:09→20:01)
[2018-02-11] MEDS: OXYBUTYNIN CHLORIDE 5 MG TAB PO SCH (08:09)
[2018-02-11] MEDS: amLODIPine 2.5 MG TAB PO SCH (08:09)
[2018-02-11] MEDS: ISOSORBIDE MONONITRATE ER 30 MG TAB.ER.24H PO SCH (08:10)
[2018-02-11] MEDS: CITALOPRAM HYDROBROMIDE 20 MG TAB PO SCH (08:10)
[2018-02-11] MEDS: LOSARTAN 50 MG TAB PO SCH (08:10)
--- NOTE | 2018-02-11 08:46 | US ---
EXAMINATION TYPE: US carotid duplex BILAT DATE OF EXAM: 02/11/2018 COMPARISON: US 2011 CLINICAL HISTORY: stroke. Unresponsive episode, stroke, exam done portable. EXAM MEASUREMENTS: RIGHT: Peak Systolic Velocity (PSV) cm/sec ----- Right CCA: 192.6 ----- Right ICA: 192.6 ----- Right ECA: 142.0 ICA/CCA ratio: 1.0 RIGHT: End Diastole cm/sec ----- Right CCA: 62.1 ----- Right ICA: 54.3 ----- Right ECA: 4.7 LEFT: Peak Systolic Velocity (PSV) cm/sec ----- Left CCA: 29.7 ----- Left ICA: 56.1 ----- Left ECA: ICA/CCA ratio: 1.9 LEFT: End Diastole cm/sec ----- Left CCA: 12.0 ----- Left ICA: 14.7 ----- Left ECA: VERTEBRALS (direction of flow): Right Vertebral: Antegrade Left Vertebral: Antegrade Rhythm: Arrhythmia Difficult and limited study due to bilateral carotid plaque and patient body habitus: short thick n mellisa. Extensive plaque seen throughout bilateral CCA's, ICA's and ECA's. Elevated velocities: right distal CCA, right bulb, right prox mid and distal ICA and right prox ECA, extremely limited visualization of left CCA and ICA and non visualization of left ECA due to limitations listed above. IMPRESSION: 1. 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 2. OCCLUSION OF THE LEFT ECA. 3. ELEVATED VELOCITY, RIGHT ECA. Criteria for Assigning % of Stenosis / Diameter reduction (Estimation based on the indirect measurements of the internal carotid artery velocities (ICA PSV). 1. Normal (no stenosis)=ICA PSV < 125 cm/s: ratio < 2.0: ICA EDV<40 cm/s. 2. Less than 50% stenosis=ICA PSV < 125 cm/s: ratio < 2.0: ICA EDV<40 cm/s. 3. 50 to 69% stenosis=ICA PSV of 125 to 230 cm/s: ration 2.0 ? 4.0: ICA EDV 40-100 cm/s. 4. Greater than 70% stenosis to near occlusion= ICA PSV > 230 cm/s: ratio > 4.0: ICA EDV > 100 cm/s. 5. Near occlusion= ICA PSV velocities may be low or undetectable: variable ratio and ICA EDV. 6. Total occlusion=unable to detect flow.
--- NOTE | 2018-02-11 10:09 | P.PN ---
Subjective Progress Note Date: 02/10/18 Principal diagnosis: Recurrent episodes of unresponsiveness Complex partial epilepsy This patient is a 87-year-old male being evaluated for episodes of unresponsiveness and mild confusion. Apparently his symptoms have been ongoing over the last several months at home. Patient is to be evaluated with a routine EEG today to rule out possibility of complex partial seizures. His clinical history suggests possibility of petit mall seizures. He has no previous history of head trauma or head injury with seizure disorder. We will continue close monitoring of his condition; further recommendations for this patient after EEG is reviewed by neurology. Objective - Vital Signs Vital signs: Vital Signs Temp 97.7 F 02/10/18 07:00 Pulse 64 02/10/18 11:26 Resp 30 H 02/10/18 08:00 BP 155/67 02/10/18 07:00 Pulse Ox 94 L 02/10/18 07:00 Intake & Output 02/09/18 02/10/18 02/10/18 18:59 06:59 18:59 Intake Total 300 Balance 300 Weight 99.79 kg Intake: Oral 300 Other: Voiding Method Urinal Urinal # Voids 3 - Exam - Constitutional General appearance: Present: average body habitus, cooperative, no acute distress - EENT Eyes: Present: anicteric sclerae, EOMI, PERRLA, normal appearance ENT: Present: hearing grossly normal, normal oropharynx Ears: bilateral: normal - Neck Neck: Present: normal ROM. Absent: lymphadenopathy, rigidity, thyromegaly Carotids: negative: bruit present Thyroid: bilateral: normal size, negative: enlarged, nodule - Respiratory Respiratory: bilateral: CTA, negative: rales, rhonchi, wheezing - Cardiovascular Rhythm: regular Heart sounds: normal: S1, S2 Abnormal Heart Sounds: Absent: systolic murmur, diastolic murmur - Gastrointestinal General gastrointestinal: Present: normal bowel sounds, soft. Absent: distended , organomegaly, tenderness - Genitourinary Genitourinary Comment(s): deferred - Integumentary Integumentary: Present: normal turgor. Absent: jaundiced, rash, ulcer - Neurologic Neurologic: Present: CNII-XII intact. Absent: focal deficits - Musculoskeletal Musculoskeletal: Present: gait normal, strength equal bilaterally - Psychiatric Psychiatric: Present: A&O x's 3, appropriate affect, intact judgment & insight - Labs CBC & Chem 7: 02/11/18 07:21 02/11/18 07:21 Labs: Abnormal Lab Results - Last 24 Hours (Table) 02/09/18 02/09/18 02/09/18 Range/Units 12:30 12:30 12:30 RBC 2.66 L (4.30-5.90) m/uL Hgb 8.1 L (13.0-17.5) gm/dL Hct 24.7 L (39.0-53.0) % Lymphocytes # (1.0-4.8) k/uL Potassium 5.6 H (3.5-5.1) mmol/L BUN 33 H (9-20) mg/dL Creatinine 1.45 H (0.66-1.25) mg/dL Total Creatine Kinase 51 L (55-170) U/L Total Protein 6.1 L (6.3-8.2) g/dL Ur Leukocyte Esterase (Negative) Hyaline Casts (0-2) /lpf Urine Mucus (None) /hpf 02/09/18 02/09/18 02/10/18 Range/Units 13:40 22:23 07:09 RBC 2.81 L 2.73 L (4.30-5.90) m/uL Hgb 8.8 L 8.6 L (13.0-17.5) gm/dL Hct 26.2 L 25.6 L (39.0-53.0) % Lymphocytes # 0.9 L (1.0-4.8) k/uL Potassium (3.5-5.1) mmol/L BUN (9-20) mg/dL Creatinine (0.66-1.25) mg/dL Total Creatine Kinase (55-170) U/L Total Protein (6.3-8.2) g/dL Ur Leukocyte Esterase Small H (Negative) Hyaline Casts 9 H (0-2) /lpf Urine Mucus Rare H (None) /hpf 02/10/18 Range/Units 07:09 RBC (4.30-5.90) m/uL Hgb (13.0-17.5) gm/dL Hct (39.0-53.0) % Lymphocytes # (1.0-4.8) k/uL Potassium (3.5-5.1) mmol/L BUN 26 H (9-20) mg/dL Creatinine 1.35 H (0.66-1.25) mg/dL Total Creatine Kinase (55-170) U/L Total Protein (6.3-8.2) g/dL Ur Leukocyte Esterase (Negative) Hyaline Casts (0-2) /lpf Urine Mucus (None) /hpf Assessment and Plan Assessment: 1. Recurrent episodes of unresponsiveness; possible complex partial seizures - Patient remains on neuro checks and seizure precautions - EEG is ordered and is pending - Neurology is on board and further recommendations after EEG is done 2. TIA; history of CVA - 2-D echocardiogram and bilateral carotid Doppler is ordered and pending - Continue with neuro checks per unit protocol - Neurology is on board and workup is in progress 3. Acute renal injury - Continue with IV fluids; monitor strict GRACE's and daily weights - We will monitor renal function and electrolytes closely - Avoid hypotension and nephrotoxins - Consult nephrology if renal function continues to worsen 4. Anemia - Etiology is unclear; questioning anemia of chronic disease versus iron deficiency anemia - Patient does have history of GI bleed; hold off antiplatelet therapy - We will continue with iron sulfate 325 mg 3 times a day and Protonix 40 mg daily - Continue to monitor H&H and consult GI/hematology if hemoglobin continues to drop 5. Hyperlipidemia; continue with atorvastatin 20 mg by mouth daily at bedtime 6. Hypertension; stable on amlodipine 2.5 mg daily, Cozaar 100 mg daily, Imdur 30 mg daily 7. Asthma; continue with bronchodilator nebulizer treatment when necessary 8. DVT prophylaxis; subcu heparin CODE STATUS; full code Time with Patient: Greater than 30
--- NOTE | 2018-02-11 11:54 | P.PN ---
Subjective Progress Note Date: 02/11/18 Patient is being evaluated for episodes of unrespnsiveness. The patient was admitted to the hospital after having staring spells at home. He is resting comfortably at bedside today and has had no further episodes. We did have a discussion with the patient's and family member and apparently he has been having frequent staring spells off and on for the past several months. He will be going for routine EEG today to rule out possibility of partial seizures such as petit mal. He has no previous history of underlying seizure disorder. The patient was able to complete routine EEG today which was reviewed. His EEG is within normal limits for his age with no evidence of any epileptiform discharges. Specifically no evidence to suggest petit mall or absent seizures. We reviewed the results of the EEG today with the patient. He was sent for a carotid Doppler ultrasound study this morning which reveals 5069 percent stenosis of the proximal right ICA. Occlusion of the left CLAIM ATTORNEY. Elevated velocity of the right ECA. We have recommended a consultation with vascular surgery regarding the carotid results this morning. We will continue to monitor for any recurrent spells. Apparently this morning he had another staring spell etiology of which still remains unknown. He does have history of TIA symptoms in the past. Neurologically he remains intact today and we will continue close neurological follow-up for him during this admission. We will continue close neurological follow-up with multiple specialists who are evaluating this patient as well. His overall prognosis at this time remains guarded. Case was discussed at length with the patient and his at bedside. All of their questions were answered to their best satisfaction. Objective - Vital Signs Vital signs: Vital Signs Temp 98.3 F 02/11/18 07:21 Pulse 57 L 02/11/18 07:21 Resp 18 02/11/18 07:21 BP 141/56 02/11/18 07:21 Pulse Ox 94 L 02/11/18 07:21 Intake & Output 02/10/18 02/11/18 02/11/18 18:59 06:59 18:59 Intake Total 500 Balance 500 Intake: Oral 500 Other: Voiding Method Urinal Urinal # Voids 3 3 # Bowel Movements 1 - Exam Physical Examination: PHYSICAL EXAMINATION: Patient is resting comfortably in bed. VITAL SIGNS: Blood pressure is [141/56]. Heart rate is [57]. Respiration is [18] . Temperature is [98.3]. HEENT: Head is atraumatic, neck is supple, there were no carotid bruits. CHEST: Lungs are clear to auscultation and percussion. CARDIAC: S1, S2 normal rate and rhythm. There is no murmur. ABDOMEN: Soft and nontender. Bowel sounds are present. EXTREMITIES: There is no pedal edema. Peripheral pulses are present. Neurological examination: Patient's neurological examination is unchanged from yesterday. Patient is sitting up in chair and has no focal neurological episodes today on exam. - Labs CBC & Chem 7: 02/11/18 07:21 0818 07:21 Labs: Abnormal Lab Results - Last 24 Hours (Table) 02/11/18 02/11/18 Range/Units 07:21 07:21 RBC 2.59 L (4.30-5.90) m/uL Hgb 8.0 L (13.0-17.5) gm/dL Hct 24.2 L (39.0-53.0) % Lymphocytes # 0.9 L (1.0-4.8) k/uL BUN 22 H (9-20) mg/dL Creatinine 1.40 H (0.66-1.25) mg/dL Assessment and Plan (1) Recurrent episodes of unresponsiveness Current Visit: Yes Status: Acute Code(s): R41.82 - ALTERED MENTAL STATUS, UNSPECIFIED SNOMED Code(s): 703066891 (2) Complex partial epilepsy Current Visit: Yes Status: Acute Code(s): G40.209 - LOCAL-REL SYMPTC EPI W CMPLX PRT SEIZ,NOT NTRCT,W/O STAT EPI SNOMED Code(s): 816598050 (3) Coronary artery disease involving coronary bypass graft Current Visit: Yes Status: Acute Code(s): I25.810 - ATHEROSCLEROSIS OF CABG W/O ANGINA PECTORIS SNOMED Code(s): 126975284 (4) Anemia Current Visit: Yes Status: Acute Code(s): D64.9 - ANEMIA, UNSPECIFIED SNOMED Code(s): 069351259 Plan: This patient is a 87-year-old male who was admitted to hospital with episodes of recurrent unresponsiveness and staring spells. There was concern the patient may have some degree of partial seizures such as petit mal Seizures. He Underwent Routine EEG Today Which Was Reviewed and Is within Normal Limits for His Age with No Evidence of Any Epileptiform Discharges. Specifically No Evidence of Petite Mall or Absent Seizures. We Reviewed the Results of the EEG Today with the Patient and His at Bedside. 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 We Have Recommended a Consultation with Vascular Surgery for Their Evaluation and Recommendations. Neurologically the Patient Remains Stable and May Be Considered for Discharge Home Soon. We Will Continue Close Neurological Follow-Up for the Patient.
[2018-02-11] MEDS: MULTIVITAMINS, THERA 1 EACH TAB PO SCH (12:24)
--- NOTE | 2018-02-11 13:30 | P.PN ---
Subjective Progress Note Date: 02/11/18 Principal diagnosis: Recurrent episodes of unresponsiveness Complex partial epilepsy This patient is a 87-year-old male being evaluated for episodes of unresponsiveness and mild confusion. Apparently his symptoms have been ongoing over the last several months at home. Patient is to be evaluated with a routine EEG today to rule out possibility of complex partial seizures. His clinical history suggests possibility of petit mall seizures. He has no previous history of head trauma or head injury with seizure disorder. We will continue close monitoring of his condition; further recommendations for this patient after EEG is reviewed by neurology. 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; vascular surgery has been consulted for further recommendations which are pending; this was discussed in great detail with patient and family members were not agreeable Objective - Vital Signs Vital signs: Vital Signs Temp 98.3 F 02/11/18 07:21 Pulse 57 L 02/11/18 07:21 Resp 18 02/11/18 07:21 BP 141/56 02/11/18 07:21 Pulse Ox 94 L 02/11/18 07:21 Intake & Output 02/10/18 02/11/18 02/11/18 18:59 06:59 18:59 Intake Total 500 Balance 500 Intake: Oral 500 Other: Voiding Method Urinal Urinal Urinal # Voids 3 3 # Bowel Movements 1 - Exam - Constitutional General appearance: Present: average body habitus, cooperative, no acute distress - EENT Eyes: Present: anicteric sclerae, EOMI, PERRLA, normal appearance ENT: Present: hearing grossly normal, normal oropharynx Ears: bilateral: normal - Neck Neck: Present: normal ROM. Absent: lymphadenopathy, rigidity, thyromegaly Carotids: negative: bruit present Thyroid: bilateral: normal size, negative: enlarged, nodule - Respiratory Respiratory: bilateral: CTA, negative: rales, rhonchi, wheezing - Cardiovascular Rhythm: regular Heart sounds: normal: S1, S2 Abnormal Heart Sounds: Absent: systolic murmur, diastolic murmur - Gastrointestinal General gastrointestinal: Present: normal bowel sounds, soft. Absent: distended , organomegaly, tenderness - Genitourinary Genitourinary Comment(s): deferred - Integumentary Integumentary: Present: normal turgor. Absent: jaundiced, rash, ulcer - Neurologic Neurologic: Present: CNII-XII intact. Absent: focal deficits - Musculoskeletal Musculoskeletal: Present: gait normal, strength equal bilaterally - Psychiatric Psychiatric: Present: A&O x's 3, appropriate affect, intact judgment & insight - Labs CBC & Chem 7: 18 07:21 0818 07:21 Labs: Abnormal Lab Results - Last 24 Hours (Table) 02/11/18 02/11/18 Range/Units 07:21 07:21 RBC 2.59 L (4.30-5.90) m/uL Hgb 8.0 L (13.0-17.5) gm/dL Hct 24.2 L (39.0-53.0) % Lymphocytes # 0.9 L (1.0-4.8) k/uL BUN 22 H (9-20) mg/dL Creatinine 1.40 H (0.66-1.25) mg/dL Assessment and Plan Assessment: 1. Recurrent episodes of unresponsiveness; possible complex partial seizures - Patient remains on neuro checks and seizure precautions - EEG is ordered and is pending - Neurology is on board and further recommendations after EEG is done 2. TIA; history of CVA - 2-D echocardiogram and bilateral carotid Doppler is ordered and pending - Continue with neuro checks per unit protocol - Neurology is on board and workup is in progress 3. Acute renal injury - Continue with IV fluids; monitor strict GRACE's and daily weights - We will monitor renal function and electrolytes closely - Avoid hypotension and nephrotoxins - Consult nephrology if renal function continues to worsen 4. Anemia - Etiology is unclear; questioning anemia of chronic disease versus iron deficiency anemia - Patient does have history of GI bleed; hold off antiplatelet therapy - We will continue with iron sulfate 325 mg 3 times a day and Protonix 40 mg daily - Continue to monitor H&H and consult GI/hematology if hemoglobin continues to drop 5. Hyperlipidemia; continue with atorvastatin 20 mg by mouth daily at bedtime 6. Hypertension; stable on amlodipine 2.5 mg daily, Cozaar 100 mg daily, Imdur 30 mg daily 7. Asthma; continue with bronchodilator nebulizer treatment when necessary 8. DVT prophylaxis; subcu heparin CODE STATUS; full code Time with Patient: Greater than 30
--- NOTE | 2018-02-11 19:35 | CONS ---
CONSULTATION This is an 87-year-old gentleman who has been admitted to [facility] with history of confusion and passing-out spell. The patient has medical issues, history of CVA in the past. No history of any motor deficit. No history of any vision loss. Patient has history of hypertension, hyperlipidemia, coronary artery disease, CABG was previously done in the past. Patient had a CT of the brain, which showed no evidence of acute hemorrhage or mass effect, chronic vessel disease. Patient had a carotid ultrasound. Right side is 50-69%, left external is occluded. The internal is patent. PHYSICAL EXAMINATION: Patient was seen in his room. The patient is still confused and he remembers his family members and he knows where he is. NECK: Supple. No bruit appreciated. CHEST: Clear. ABDOMEN: Soft. The motor functions are normal upper and lower extremity. No weakness noted. No speech problem. No evidence of amorous fugax. IMPRESSION: Right carotid 50 to 69%, left external is patent. Carotid arteries are patent on the left side internal and CTA showed no evidence of acute intracranial bleed or intracranial hemorrhage. At this point patient is treated medically. We will follow with you. At this point, I am not convinced for any major surgical intervention because his right side symptoms are mostly affecting the left side and her right vision which is found to be normal. MMODL / IJN: [id number] /
[2018-02-11] MEDS: ATORVASTATIN 20 MG TAB PO SCH (20:01)
[2018-02-11 23:27] VITALS: TEMP 97.7
[2018-02-12 07:32] VITALS: BP 133/57; RESP 18
[2018-02-12] MEDS: IPRATROPIUM 0.5 MG/2.5 ML NEBU INHALATION SCH ×2 (07:50→11:57)
[2018-02-12] MEDS: ALBUTEROL NEBULIZED 2.5 MG/3 ML INHALATION SCH (07:50)
[2018-02-12] MEDS: SYMBICORT 160-4.5 MCG INHALER INHALATION SCH (07:52)
[2018-02-12 08:03] VITALS: PULSE 80
[2018-02-12] MEDS: OXYBUTYNIN CHLORIDE 5 MG TAB PO SCH (08:25)
[2018-02-12] MEDS: PANTOPRAZOLE 40 MG TABLET PO SCH (08:25)
[2018-02-12] MEDS: LOSARTAN 50 MG TAB PO SCH (08:25)
[2018-02-12] MEDS: CITALOPRAM HYDROBROMIDE 20 MG TAB PO SCH (08:25)
[2018-02-12] MEDS: FERROUS SULFATE 325 MG TAB PO SCH ×2 (08:25→12:38)
[2018-02-12] MEDS: amLODIPine 2.5 MG TAB PO SCH (08:26)
[2018-02-12] MEDS: ISOSORBIDE MONONITRATE ER 30 MG TAB.ER.24H PO SCH (08:26)
[2018-02-12] MEDS: HEPARIN SODIUM,PORCINE 5,000 UNIT/ML 1 ML VIAL SQ SCH (08:26)
[2018-02-12] MEDS: DOCUSATE 100 MG CAP PO SCH (08:26)
[2018-02-12 09:36] LABS: Basophils % (A) 0 %; Eosinophils # (A) 0.2 k/uL (0-0.7); Eosinophils % (A) 4 %; HCT 25.6 % (39.0-53.0); HGB 8.6 gm/dL (13.0-17.5); Lymphocytes # (A) 1.2 k/uL (1.0-4.8); Lymphocytes % (A) 23 %; MCH 31.2 pg (25.0-35.0); MCHC 33.5 g/dL (31.0-37.0); MCV 93.3 fL (80.0-100.0); Mean Platelet Volume 7.8; Monocytes # (A) 0.3 k/uL (0-1.0); Monocytes % (A) 5 %; Neutrophils # (A) 3.3 k/uL (1.3-7.7); Neutrophils % (A) 65 %; Platelet Count 260 k/uL (150-450); RBC 2.74 m/uL (4.30-5.90); RDW 14.1 % (11.5-15.5); WBC 5.1 k/uL (3.8-10.6)
[2018-02-12 09:56] LABS: Calcium 9.3 mg/dL (8.4-10.2); Potassium 4.3 mmol/L (3.5-5.1)
[2018-02-12] MEDS: MULTIVITAMINS, THERA 1 EACH TAB PO SCH (12:38)
--- NOTE | 2018-02-13 01:11 | P.DS ---
Providers Date of admission: 02/09/18 13:52 Expected date of discharge: 02/12/18 Attending physician: Veena Moscoso Consults: 02/09/18 13:52 Consult Physician Urgent Consulting Provider: Janet Corona Consult Reason/Comments: Unresponsive episodes Do you want consulting provider notified?: Yes 02/11/18 10:45 Consult Physician Urgent Consulting Provider: Hollis Peralta Consult Reason/Comments: possible TIA's, carotid blockage Do you want consulting provider notified?: Yes Primary care physician: Physician Nonstaff Hospital Course: Discharge diagnosis 1. Recurrent episodes of unresponsiveness; possible complex partial seizures - Patient continue on neuro checks and seizure precautions - EEG showed no epileptiform waves. No evidence of complex seizures.. - Neurology recommends follow-up as an outpatient. - Recommended no driving for 6 months until cleared by physician. 2. TIA; history of CVA - 2-D echocardiogram and bilateral carotid Doppler was done - Continued with neuro checks per unit protocol - Patient was seen by neurology. Continue with aspirin. 3. 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 No surgical intervention for vascular surgery at this time. Follow-up as an outpatient. Otherwise patient is high-risk for vascular surgery. 3. Acute renal injury. Improved. 4. Anemia - Etiology is unclear; questioning anemia of chronic disease versus iron deficiency anemia - Patient does have history of GI bleed; did hold antiplatelet therapy. Started back on his hemoglobin is stable. - We will continue with iron sulfate 325 mg 3 times a day and Protonix 40 mg daily - Continued to monitor H&H and recommended GI/hematology as an outpatient. 5. Hyperlipidemia; continue with atorvastatin 20 mg by mouth daily at bedtime 6. Hypertension; stable on amlodipine 2.5 mg daily, Cozaar 100 mg daily, Imdur 30 mg daily 7. Asthma; continue with bronchodilator nebulizer treatment when necessary 8. DVT prophylaxis; subcu heparin CODE STATUS; full code Hospital course This patient is a 87-year-old male being evaluated for episodes of unresponsiveness and mild confusion. Apparently his symptoms have been ongoing over the last several months at home. Patient is to be evaluated with a routine EEG today to rule out possibility of complex partial seizures. His clinical history suggests possibility of petit mall seizures. He has no previous history of head trauma or head injury with seizure disorder. We will continue close monitoring of his condition; further recommendations for this patient after EEG is reviewed by neurology. 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 02/12/2018 Patient was seen and examined. As per the family patient did have stating episode for a few seconds today morning and came back to normal status immediately. Otherwise patient currently denied any complaints of chest pain or shortness of breath. No weakness. No headache or dizziness. Discussed with neurology and vascular surgery. No intervention from vascular surgery and recommended outpatient follow-up due to right carotid artery stenosis and complete occlusion of left carotid artery. EEG failed to reveal any complex seizures or epileptiform focus. Neurology thinks possibly recurrent TIAs. Otherwise patient is stable to be discharged home and follow up with neurology and vascular surgery has an outpatient. Discussed with the family in detail at bedside. Patient was started back on Aggrenox for secondary stroke prophylaxis. Hemoglobin is stable otherwise around 8.6. Patient is eager to be discharged home. PHYSICAL EXAMINATION: Patient is lying in the bed comfortably, no acute distress, awake alert and oriented.. HEENT: Normocephalic. Neck is supple. Pupils reactive. Nostrils clear. Oral cavity is moist. Ears reveal no drainage. Neck reveals no JVD, carotid bruits, or thyromegaly. CHEST EXAMINATION: Trachea is central. Symmetrical expansion. Lung montalvo clear to auscultation and percussion. CARDIAC: Normal S1, S2 with no gallops. No murmurs ABDOMEN: Soft. Bowel sounds normal. No organomegaly. No abdominal bruits. Extremities: reveal no edema. No clubbing or cyanosis Neurologically awake, alert, oriented x3 with well-coordinated movements. No focal deficits noted Skin: No rash or skin lesions. Psychiatric: Coperative. Nonsuicidal Musculoskeletal: No joint swelling or deformity. Normal range of motion. Vitals reviewed. Vital Signs - 24 hr 02/12/18 02/12/18 02/12/18 07:00 07:52 08:02 Temperature 97.7 F Pulse Rate 70 80 Pulse Rate [ 58 L Pulse Oximetery ] Respiratory 18 Rate Blood Pressure 133/57 [Right Arm] O2 Sat by Pulse 94 L Oximetry Total time taken greater than 35 minutes including 18 minutes for counseling and coordination of care. Patient Condition at Discharge: Fair Plan - Discharge Summary Discharge Rx Participant: No New Discharge Prescriptions: Continue Multivitamins, Thera [Multivitamin (formulary)] 1 tab PO DAILY Ferrous Sulfate [Iron (65 MG Elemental)] 325 mg PO TID-W/MEALS Tiotropium [place] [Spiriva] 1 cap INHALATION RT-DAILY Fluticasone/Vilanterol [Breo Ellipta 200-25 Mcg INH] 1 puff INHALATION RT- DAILY Docusate [Colace] 100 mg PO BID Albuterol Nebulized [Ventolin Nebulized] 2.5 mg INHALATION RT-BID Oxybutynin Chloride 5 mg PO DAILY Losartan Potassium [Cozaar] 100 mg PO DAILY Aspirin/Dipyridamole [Aggrenox 25MG -200MG] 1 tab PO BID amLODIPine [Norvasc] 2.5 mg PO DAILY Simvastatin [Zocor] 40 mg PO HS Omeprazole 20 mg PO DAILY Isosorbide Mononitrate ER [Imdur] 30 mg PO DAILY Citalopram Hydrobromide [Citalopram HBr] 20 mg PO DAILY Focus Macula Pro 1 tab PO DAILY Discharge Medication List Albuterol Nebulized [Ventolin Nebulized] 2.5 mg INHALATION RT-BID 02/09/18 [ History] Aspirin/Dipyridamole [Aggrenox 25MG -200MG] 1 tab PO BID 02/09/18 [History] Citalopram Hydrobromide [Citalopram HBr] 20 mg PO DAILY 02/09/18 [History] Docusate [Colace] 100 mg PO BID 02/09/18 [History] Ferrous Sulfate [Iron (65 MG Elemental)] 325 mg PO TID-W/MEALS 02/09/18 [History ] Fluticasone/Vilanterol [Breo Ellipta 200-25 Mcg INH] 1 puff INHALATION RT-DAILY 02/09/18 [History] Focus Macula Pro 1 tab PO DAILY 02/09/18 [History] Isosorbide Mononitrate ER [Imdur] 30 mg PO DAILY 02/09/18 [History] Losartan Potassium [Cozaar] 100 mg PO DAILY 02/09/18 [History] Multivitamins, Thera [Multivitamin (formulary)] 1 tab PO DAILY 02/09/18 [History ] Omeprazole 20 mg PO DAILY 02/09/18 [History] Oxybutynin Chloride 5 mg PO DAILY 02/09/18 [History] Simvastatin [Zocor] 40 mg PO HS 02/09/18 [History] Tiotropium [place] [Spiriva] 1 cap INHALATION RT-DAILY 02/09/18 [History] amLODIPine [Norvasc] 2.5 mg PO DAILY 02/09/18 [History] Follow up Appointment(s)/Referral(s): Paul Parson MD [REFERRING] - 02/21/18 9:00 am Janet Corona MD [STAFF PHYSICIAN] - 03/29/18 11:00 am Hollis Peralta MD [STAFF PHYSICIAN] - 02/28/18 10:00 am Discharge Disposition: HOME SELF-CARE
== END 2018-02-12 13:49 | disposition home or self-care (01) | DRG 101 ==
LOC: EC 11:46 → 4MS4W 13:52
PROVIDERS: ADMIT Hospitalist; ATTEND Hospitalist
DX: G40.209 Localization-related (focal) (partial) symptomatic epilepsy and epileptic syndromes with complex partial seizures, not intractable, without status epilepticus (principal); I25.810 Atherosclerosis of coronary artery bypass graft(s) without angina pectoris; N17.9 Acute kidney failure, unspecified; D64.9 Anemia, unspecified; E78.5 Hyperlipidemia, unspecified; I10 Essential (primary) hypertension; I65.21 Occlusion and stenosis of right carotid artery; I66.22 Occlusion and stenosis of left posterior cerebral artery; J44.9 Chronic obstructive pulmonary disease, unspecified; Z79.899 Other long term (current) drug therapy; Z82.49 Family history of ischemic heart disease and other diseases of the circulatory system; Z87.891 Personal history of nicotine dependence; Z96.1 Presence of intraocular lens; Z98.41 Cataract extraction status, right eye; Z98.42 Cataract extraction status, left eye; Z96.653 Presence of artificial knee joint, bilateral; Z79.82 Long term (current) use of aspirin; I69.328 Other speech and language deficits following cerebral infarction; J45.909 Unspecified asthma, uncomplicated; Z87.19 Personal history of other diseases of the digestive system
CPT/HCPCS: 36415; 70450; 71046; 80048; 80053; 80306; 81001; 82550; 82553; 84484; 85025; 85610; 85730; 93005; 93306; 93880; 94640; 95819; 99285